=== PATIENT | female | born 1960 | race Caucasian/White ===

== ENCOUNTER 2017-02-13 17:46 | Inpatient (IN) | payer OTHER ==
[~2017-02-13] VITALS: Ht 160 cm; Wt 131.2 kg
[2017-02-13 18:44] LABS: HEMATOCRIT 39.6 % (34.6-47.8); WHITE BLOOD COUNT 12.5 x10^3/uL (3.4-10)
[2017-02-13 18:55] LABS: BLOOD UREA NITROGEN 20 mg/dL (7-18)
[2017-02-13] MEDS ORDERED: GADOBUTROL 10 MMOL/10 ML PFS ONE (18:56)
[2017-02-13] MEDS ORDERED: KETOROLAC 30 MG/1 ML IV ONE (19:00)
[2017-02-13] MEDS ORDERED: AMPICILLIN/SULBACTAM 3 GM in SODIUM CHLORIDE 0.9% 100 ML IVPB ONE (19:00)
[2017-02-13] MEDS ORDERED: DIPHENHYDRAMINE 50 MG/ML, 1ML ONE (19:27)
[2017-02-13] MEDS ORDERED: methylPREDNISolone SOD SUCC 125 MG/2 ML ONE (19:28)
[2017-02-13] MEDS ORDERED: DIPHENHYDRAMINE 50 MG/ML, 1ML IVPush ONE (19:30)
[2017-02-13] MEDS ORDERED: methylPREDNISolone SOD SUCC 125 MG/2 ML IVPush ONE (19:30)
[2017-02-13] MEDS ORDERED: ASPI-496 PO (21:02)
[2017-02-13] MEDS ORDERED: HYDR25TA6 PO (21:02)
[2017-02-13] MEDS ORDERED: AMLO10TA2 PO (21:02)
[2017-02-13] MEDS ORDERED: LISI-170 PO (21:03)
[2017-02-13] MEDS ORDERED: OMEP-110 PO (21:03)
[2017-02-13] MEDS ORDERED: LISINOPRIL 20 MG TABLET ONE (21:24)
[2017-02-13] MEDS ORDERED: SODIUM CHLORIDE FLUSH 10ML SYR IVF PRN (21:30)
[2017-02-13] MEDS ORDERED: AMLODIPINE 5 MG TABLET PO ONE (21:30)
[2017-02-13] MEDS ORDERED: HYDROCHLOROTHIAZIDE 25 MG TABLET PO ONE (21:30)
[2017-02-13] MEDS ORDERED: LISINOPRIL 20 MG TABLET PO ONE (21:30)
[2017-02-13] MEDS ORDERED: SODIUM CHLORIDE 0.9% 1,000 ML IV SCH (22:10)
[2017-02-13] MEDS ORDERED: hydrALAzine 20 MG/ML, 1ML IVPush PRN (22:30)
[2017-02-13] MEDS ORDERED: ONDANSETRON 2MG/ML, 2ML IVPush PRN (22:30)
[2017-02-13] MEDS ORDERED: morphine SULFATE 10 MG/ML, 1ML IVPush PRN (22:30)
[2017-02-13] MEDS ORDERED: DIPHENHYDRAMINE 25 MG CAPSULE PO PRN (22:30)
[2017-02-13 23:59] VITALS: BP 185/82
[2017-02-14] MEDS: AMPICILLIN/SULBACTAM 1,500 MG in SODIUM CHLORIDE 0.9% 50 ML IV SCH ×4 (01:19→20:11)
[2017-02-14 01:25] VITALS: BP 181/88
[2017-02-14] MEDS: ASPIRIN 81 MG TABLET EC PO SCH (05:22)
[2017-02-14 06:43] VITALS: BP 143/75
[2017-02-14] MEDS: AMLODIPINE 5 MG TABLET PO SCH (07:40)
[2017-02-14] MEDS: LISINOPRIL 10 MG TABLET PO SCH (07:40)
[2017-02-14] MEDS: HYDROCHLOROTHIAZIDE 25 MG TABLET PO SCH (07:41)
[2017-02-14 15:39] VITALS: BP 133/73
[2017-02-14 19:44] VITALS: BP 160/82
[2017-02-15 01:42] VITALS: BP 147/73
[2017-02-15] MEDS: AMPICILLIN/SULBACTAM 1,500 MG in SODIUM CHLORIDE 0.9% 50 ML IV SCH ×4 (01:56→19:25)
[2017-02-15] MEDS: ASPIRIN 81 MG TABLET EC PO SCH (04:46)
[2017-02-15 05:12] LABS: HEMATOCRIT 36.8 % (34.6-47.8); WHITE BLOOD COUNT 15.5 x10^3/uL (3.4-10)
[2017-02-15 06:33] VITALS: BP 129/74
[2017-02-15] MEDS: AMLODIPINE 5 MG TABLET PO SCH (08:21)
[2017-02-15] MEDS: LISINOPRIL 10 MG TABLET PO SCH (08:22)
[2017-02-15] MEDS: HYDROCHLOROTHIAZIDE 25 MG TABLET PO SCH (08:22)
[2017-02-15] MEDS ORDERED: OXYcodone/APAP 5/325MG TABLET PO PRN (09:00)
[2017-02-15 12:23] VITALS: BP 121/65
[2017-02-15 21:09] VITALS: BP 133/61
[2017-02-16] MEDS: AMPICILLIN/SULBACTAM 1,500 MG in SODIUM CHLORIDE 0.9% 50 ML IV SCH ×2 (01:52→08:00)
[2017-02-16 02:38] VITALS: BP 137/62
[2017-02-16] MEDS: ASPIRIN 81 MG TABLET EC PO SCH (05:06)
[2017-02-16] MEDS: HYDROCHLOROTHIAZIDE 25 MG TABLET PO SCH (08:00)
[2017-02-16] MEDS: LISINOPRIL 10 MG TABLET PO SCH (08:01)
[2017-02-16] MEDS: AMLODIPINE 5 MG TABLET PO SCH (08:01)
[2017-02-16 08:04] VITALS: BP 150/79
[2017-02-16] MEDS ORDERED: AMOX1TAB61 PO (08:09)
[2017-02-16] MEDS ORDERED: PNEUMOCOCCAL 23 VACCINE IM-VACC ONE (10:30)
== END 2017-02-16 11:07 | disposition home or self-care (01) | DRG 872 ==
LOC: ED 21:14 → EDIP 21:15 → ED 21:24 → 3NE 22:42
PROVIDERS: ADMIT Hospitalist; ATTEND Hospitalist
DX: A41.9 Sepsis, unspecified organism (principal); I10 Essential (primary) hypertension; L03.113 Cellulitis of right upper limb; M65.141 Other infective (teno)synovitis, right hand; J45.909 Unspecified asthma, uncomplicated; K21.9 Gastro-esophageal reflux disease without esophagitis; Z90.710 Acquired absence of both cervix and uterus; W54.0XXA Bitten by dog, initial encounter; Z88.1 Allergy status to other antibiotic agents; Z88.6 Allergy status to analgesic agent; Z91.041 Radiographic dye allergy status; S60.371A Other superficial bite of right thumb, initial encounter
CPT/HCPCS: 36415; 80048; 82040; 85025; 85651; 86140; 90732; 96365; 96375; A9585; J0295; J1885; J0360; J1200; J2270; J2930; J7030